=== PATIENT | male | born 1960 | race Caucasian/White ===

== ENCOUNTER 2017-01-12 08:57 | Emergency (ER) | payer BC | END 2017-01-12 10:30 | disposition left against medical advice (07) | LOC: ER1 08:57 | DX: Z53.21 Procedure and treatment not carried out due to patient leaving prior to being seen by health care provider (principal) ==

== ENCOUNTER → 2017-01-13 | Outpatient (CLI) | payer BC ==
[2017-01-13 06:14] LABS: HEMOGLOBIN 15.8 gm/dl (14.0-17.5); RED BLOOD COUNT 4.96 M/UL (4.20-5.50); WHITE BLOOD COUNT 7.8 K/UL (4.5-11.0)
[2017-01-13 06:26] LABS: BUN/CREATININE RATIO 28 (0-10)
== END ==
LOC: LAB 05:40
PROVIDERS: Physician Assistant Medical
DX: Z12.5 Encounter for screening for malignant neoplasm of prostate (principal); E78.5 Hyperlipidemia, unspecified; R53.83 Other fatigue
CPT/HCPCS: 36415; 80053; 80061; 82607; 84153; 84443; 85025

== ENCOUNTER 2020-10-16 06:59 | Emergency (ER) | payer BC ==
[~2020-10-16 06:59] MED LIST: AUGMENTIN 875-1 EACH PO; CYCLOBENZAPRINE10 MG PO; IBU800 MG PO; IBUPROFEN600 MG PO; KEFLEX CAP 500500 MG PO; NORCO 5-325 TA1 EACH PO; Viscous lidocaine2% TOP
[2020-10-16 07:55] LABS: HEMOGLOBIN 14.6 gm/dl (14.0-17.5); RED BLOOD COUNT 4.96 M/UL (4.20-5.50); WHITE BLOOD COUNT 6.9 K/UL (4.5-11.0)
[2020-10-16 08:27] LABS: BUN/CREATININE RATIO 23 (0-10)
[2020-10-16] MEDS ORDERED: ZOFRAN ODT 4 MG4 MG PO (14:06)
[2020-10-16] MEDS ORDERED: DECADRON6 MG PO (14:06)
[2020-10-16] MEDS ORDERED: AZITHROMYCIN250 MG PO (14:06)
== END 2020-10-16 14:48 | disposition home or self-care (01) ==
LOC: ER1 06:59
PROVIDERS: Family Medicine
DX: U07.1 COVID-19 (principal); E11.65 Type 2 diabetes mellitus with hyperglycemia; I10 Essential (primary) hypertension; Z79.84 Long term (current) use of oral hypoglycemic drugs
CPT/HCPCS: 71045; 80053; 81001; 82550; 82553; 82803; 83605; 83690; 83735; 83874; 84439; 84443; 84484; 85025; 93005; 96374; 96375; 99285; J1100; J2405; M0239

== ENCOUNTER → 2021-09-23 | Outpatient (CLI) | payer BC ==
[~2021-09-23] MED LIST changes: +AZITHROMYCIN250 MG PO; +DECADRON6 MG PO; +ZOFRAN ODT 4 MG4 MG PO
== END ==
LOC: RAD 16:44
DX: M25.552 Pain in left hip (principal)
CPT/HCPCS: 73502

== ENCOUNTER → 2022-01-27 | Outpatient (CLI) | payer BC | LOC: RAD 17:24 | DX: M54.2 Cervicalgia (principal); M47.812 Spondylosis without myelopathy or radiculopathy, cervical region | CPT/HCPCS: 72050 ==

== ENCOUNTER 2022-05-02 09:43 | Emergency (ER) | payer BC | END 2022-05-02 11:50 | disposition home or self-care (01) | LOC: ER1 09:43 | DX: R19.7 Diarrhea, unspecified (principal); E11.9 Type 2 diabetes mellitus without complications; I10 Essential (primary) hypertension; Z87.891 Personal history of nicotine dependence; Z20.822 Contact with and (suspected) exposure to COVID-19 | CPT/HCPCS: 0240U; 99284 ==

== ENCOUNTER → 2022-05-02 | Outpatient (CLI) | payer BC ==
[2022-05-02 06:41] LABS: HEMOGLOBIN 15.6 gm/dl (14.0-17.5); RED BLOOD COUNT 4.96 M/UL (4.20-5.50); WHITE BLOOD COUNT 8.1 K/UL (4.5-11.0)
== END ==
LOC: LAB 04-30 09:28
PROVIDERS: Nurse Practitioner Family
DX: E11.9 Type 2 diabetes mellitus without complications (principal); E78.5 Hyperlipidemia, unspecified
CPT/HCPCS: 36415; 80053; 80061; 83036; 84443; 85025

== ENCOUNTER → 2022-05-29 | Outpatient (CLI) | payer BC | LOC: EMI 08:00 | DX: M47.22 Other spondylosis with radiculopathy, cervical region (principal); M48.02 Spinal stenosis, cervical region | CPT/HCPCS: 72141 ==